=== PATIENT | male | born 1995 | race African-American/Black ===

== ENCOUNTER 2018-09-14 15:10 | Emergency (ER) | payer SELFPAY ==
[~2018-09-14] VITALS: Ht 170.2 cm; Wt 92.0 kg
[2018-09-14] MEDS ORDERED: IBUPROFEN 800MG TABLET PO ONE (17:00)
[2018-09-14 19:18] VITALS: BP 124/73
== END 2018-09-14 19:00 | disposition home or self-care (01) ==
LOC: ER 15:37
DX: M54.5 Low back pain (principal); M54.2 Cervicalgia; V49.09XA Driver injured in collision with other motor vehicles in nontraffic accident, initial encounter; Y93.89 Activity, other specified; Y92.410 Unspecified street and highway as the place of occurrence of the external cause
CPT/HCPCS: 72100; 99283

== ENCOUNTER 2021-06-26 02:59 | Emergency (ER) | payer OTHER ==
[~2021-06-26] VITALS: Ht 175.3 cm; Wt 73.0 kg
[2021-06-26] MEDS ORDERED: KETOROLAC 30MG/ML VIAL IV STA (03:08)
[2021-06-26] MEDS ORDERED: MORPHINE SULFATE 4 MG/ML CPJ (NOT FOR IM USE) IV STA (03:08)
[2021-06-26] MEDS ORDERED: SODIUM CHLORIDE 0.9% 1,000 ML IV ONE (03:15)
[2021-06-26 03:34] VITALS: BP 159/63
[2021-06-26 04:37] LABS: BASOPHILS % 0.2 % (0.0-2.0); HEMOGLOBIN. 13.9 g/dL (14.0-18.0); LYMPHOCYTES % 8.8 % (20.0-50.0); MEAN CORPUSCULAR HEMOGLOBIN 30.2 pg (28.0-32.0); MEAN PLATELET VOLUME 8.1 fl (7.4-10.4); MONOCYTES % 7.5 % (2.0-8.0); NEUTROPHILS % 83.5 % (40.0-76.0); PLATELET 367 x1000/uL (130-400); RED BLOOD CELL COUNT 4.61 mill/uL (4.7-6.1); RED CELL DISTRIBUTION WIDTH 12.1 % (11.6-14.6)
[2021-06-26 05:27] LABS: CHLORIDE 98 mEq/L (98-107)
[2021-06-26] MEDS ORDERED: POTASSIUM CHLORIDE 20MEQ TABLET SR PO NR (06:00)
[2021-06-26 06:09] LABS: CLARITY URINE CLEAR (CLEAR); COLOR URINE ORANGE (YELLOW); KETONES URINE 4+ (NEGATIVE); LEUKOCYTE ESTERASE URINE 1+ (NEGATIVE); NITRITE URINE POSITIVE (NEGATIVE); OCCULT BLOOD URINE NEGATIVE (NEGATIVE); PH URINE 5.5 (4.5-8.0); PROTEIN URINE 2+ (NEGATIVE); SPECIFIC GRAVITY URINE 1.043 (1.005-1.030)
[2021-06-26] MEDS ORDERED: CEPH500C2 MT (06:22)
[2021-06-26] MEDS ORDERED: CEFTRIAXONE 1 G PREMIX 50 ML IV ONE (06:30)
== END 2021-06-26 07:32 | disposition home or self-care (01) ==
LOC: ER 02:59
DX: N12 Tubulo-interstitial nephritis, not specified as acute or chronic (principal); R30.0 Dysuria; R50.9 Fever, unspecified
CPT/HCPCS: 36415; 74176; 80053; 81003; 83690; 85025; 96361; 96365; 96375; 99284; J0696; J1885; J2270; J7030

== ENCOUNTER 2021-06-27 05:21 | Inpatient (IN) | payer OTHER ==
[~2021-06-27] VITALS: Ht 165.1 cm; Wt 89.4 kg
[~2021-06-27 05:21] MED LIST: CEPH500C2 MT
[2021-06-27] MEDS ORDERED: ONDANSETRON HCL 4MG/2ML INJ IV STA (05:31)
[2021-06-27] MEDS ORDERED: MORPHINE SULFATE 4 MG/ML CPJ (NOT FOR IM USE) IV STA (05:31)
[2021-06-27 06:28] LABS: BASOPHILS % 0.3 % (0.0-2.0); HEMATOCRIT. 40.3 % (42.0-52.0); HEMOGLOBIN. 13.6 g/dL (14.0-18.0); LYMPHOCYTES % 9.9 % (20.0-50.0); MEAN CORPUSCULAR VOLUME 89.1 fL (80.0-94.0); MEAN PLATELET VOLUME 7.4 fl (7.4-10.4); MONOCYTES % 7.5 % (2.0-8.0); NEUTROPHILS % 82.3 % (40.0-76.0); PLATELET 313 x1000/uL (130-400); RED BLOOD CELL COUNT 4.53 mill/uL (4.7-6.1); RED CELL DISTRIBUTION WIDTH 12.1 % (11.6-14.6)
[2021-06-27 06:34] LABS: CHLORIDE 100 mEq/L (98-107)
[2021-06-27 18:09] LABS: CLARITY URINE TURBID (CLEAR); COLOR URINE YELLOW (YELLOW); KETONES URINE 2+ (NEGATIVE); LEUKOCYTE ESTERASE URINE 1+ (NEGATIVE); NITRITE URINE NEGATIVE (NEGATIVE); OCCULT BLOOD URINE NEGATIVE (NEGATIVE); PH URINE 7.5 (4.5-8.0); PROTEIN URINE NEGATIVE (NEGATIVE); SPECIFIC GRAVITY URINE 1.014 (1.005-1.030)
[2021-06-27] MEDS ORDERED: KETOROLAC 30MG/ML VIAL IV PRN (18:30)
[2021-06-27 22:30] VITALS: BP 151/94
[2021-06-27] MEDS ORDERED: CEFTRIAXONE 1 G PREMIX 50 ML IV SCH (22:30)
[2021-06-27] MEDS ORDERED: ACETAMINOPHEN 325MG TABLET PO PRN (22:30)
[2021-06-27] MEDS ORDERED: ONDANSETRON HCL 4MG/2ML INJ IV PRN (22:30)
[2021-06-27] MEDS ORDERED: CEFTRIAXONE 1,000 MG in DEXTROSE 5% WATER 50 ML IV SCH (23:30)
[2021-06-27] MEDS ORDERED: NALOXONE HCL 0.4MG/ML VIAL IV PRN (23:45)
[2021-06-28] VITALS: BP 163/82
[2021-06-28] MEDS ORDERED: HYDROCODONE/ACETAMINOPHEN 5/325MG TABLET PO PRN
[2021-06-28] MEDS ORDERED: NA PHOS,M-B/NA PHOS,DI-BA ENEMA 118ML PR PRN
[2021-06-28 04:00] VITALS: BP 143/83
[2021-06-28] MEDS: LACTULOSE 20G/30ML UDC PO SCH ×2 (06:38→13:47)
[2021-06-28 08:00] VITALS: BP 150/105
[2021-06-28 12:00] VITALS: BP 160/106
[2021-06-28] MEDS ORDERED: AMLODIPINE 10MG TABLET PO SCH (12:15)
[2021-06-28 13:51] VITALS: BP 150/100
[2021-06-28] MEDS ORDERED: AZITHROMYCIN 500 MG TABLET PO NR (14:00)
[2021-06-28] MEDS ORDERED: AMLO10TA80 MT (17:12)
== END 2021-06-28 14:30 | disposition home or self-care (01) | DRG 463 ==
LOC: ER 05:21 → 6EST 10:38 → ENRESERV 21:34
PROVIDERS: ADMIT Internal Medicine; ATTEND Internal Medicine
DX: N12 Tubulo-interstitial nephritis, not specified as acute or chronic (principal); A56.8 Sexually transmitted chlamydial infection of other sites; Z20.822 Contact with and (suspected) exposure to COVID-19; I10 Essential (primary) hypertension; Z88.2 Allergy status to sulfonamides
CPT/HCPCS: 36415; 80053; 81003; 85025; 87426; 99285; J0696; J1885; J2270; J2405; J7060